=== PATIENT | female | born 1955 | race African-American/Black ===

== ENCOUNTER 2016-08-05 11:30 | Day surgery (SDC) | payer OTHER ==
[2016-08-04 11:15] VITALS: BMI 32.1
--- NOTE | 2016-08-05 09:54 | HP ---
[facility] - Chief Complaint Chief Complaint: right shoulder pain - Past Medical History Allergies/Adverse Reactions: Allergies Allergy/AdvReac Type Severity Reaction Status Date / Time No Known Allergies Allergy Verified 08/04/16 11:15 - Current Medications Current Medications: Home Medications Medication Instructions Recorded Ibuprofen [Motrin -] 400 mg PO PRN 08/04/16 Lisinopril/Hydrochlorothiazide 1 each PO DAILY 08/04/16 [Lisinopril-Hctz 20-25 mg Tab] Hydrocodone/Acetaminophen 1 each PO Q6H #40 tablet MDD 4 08/05/16 [Hydrocodon-Acetaminoph 7.5-325] [facility]ellite Physical Exam - Physical Examination General Appearance: Well Nourished, Well Developed, Alert & Oriented x3 ENT: Clear Lung: Normal air movement Heart: Regular rate & rhythm Extremities: Other (right shoulder- + ttp, decr rom, + empty can, + neer, + spence, nvi MRI + rct) Neurological: Intact, Alert, Oriented Satellite Impression/Plan - Impression/Plan Impression: right shoulder rct Operative Procedure: right shoulder arthroscopy SAD with possible RCR Date to be Performed: 08/05/16
[2016-08-05 11:34] LABS: URINE APPEARANCE CLEAR; URINE BILIRUBIN NEGATIVE (NEGATIVE); URINE COLOR YELLOW; URINE GLUCOSE (UA) NEGATIVE (NEGATIVE); URINE KETONE NEGATIVE (NEGATIVE); URINE NITRITE NEGATIVE (NEGATIVE); URINE PROTEIN NEGATIVE (NEGATIVE); URINE UROBILINOGEN NEGATIVE E.U./dl (0.2-1.0)
[2016-08-05 11:35] LABS: URINE BLOOD 2+ (NEGATIVE); URINE LEUK ESTERASE TRACE (NEGATIVE)
[2016-08-05 11:41] LABS: URINE HYALINE CAST 6 /lpf; URINE MUCUS FEW; URINE RBC 4 /hpf (0-3)
[2016-08-05] MEDS ORDERED: ROPIVACAINE HCL 0.5% 30ML VIAL ONE (13:14)
[2016-08-05] MEDS ORDERED: MIDAZOLAM HCL 2 MG/2 ML SINGLE DOSE VIAL ONE ×2 (13:15)
[2016-08-05] MEDS ORDERED: PROPOFOL 20 ML ONE (13:50)
[2016-08-05] MEDS ORDERED: ROCURONIUM BROMIDE 50 MG/5 ML VIAL ONE (13:50)
[2016-08-05] MEDS ORDERED: LIDOCAINE HCL/PF 2% SDV 5ML VIAL ONE (13:54)
[2016-08-05] MEDS ORDERED: ceFAZolin SODIUM 1 GM VIAL IVPB ONE (13:57)
[2016-08-05] MEDS ORDERED: ceFAZolin SODIUM 1 GM VIAL ONE (14:04)
[2016-08-05] MEDS ORDERED: BACITRACIN 30 GM TUBE TOPICAL OINTMENT ONE (15:05)
[2016-08-05] MEDS ORDERED: NEOSTIGMINE METHYLSULFATE 0.5 MG/ML - 10 ML MDV ONE (15:05)
[2016-08-05] MEDS ORDERED: GLYCOPYRROLATE 0.2 MG/1 ML VIAL ONE (15:05)
--- NOTE | 2016-08-05 15:09 | OP ---
Operative Note - Note: Operative Date: 08/05/16 Pre-Operative Diagnosis: right shoulder impingement syndrome, RTC tear Operation: right shoulder arthroscopy, decompression, distal clavicle excision, Mini Open RTC repair Implants: 2 x Arthrex Swivel [place] anchors, fiber wire Surgeon: Jose Fofana Workers Compensation Claims Analyst: Jan Jones Anesthesiologist/POULTRY OFFAL WORKER: Artem Patton Anesthesia: General Specimens Removed: shavings Estimated Blood Loss (mls): 50 Blood Volume Replaced (mls): 0 Fluid Volume Replaced (mls): 1,000 Operative Report Dictated: Yes
[2016-08-05] MEDS ORDERED: oxyCODONE HCL 5 MG TABLET PO PRN (15:23)
[2016-08-05] MEDS ORDERED: PROMETHAZINE HCL 25 MG/1 ML VIAL IVPUSH PRN (15:23)
[2016-08-05] MEDS ORDERED: HYDROmorphone HCL CARPU-JECT 1 MG/1 ML DISP.SYRIN IVPUSH PRN (15:23)
[2016-08-05] MEDS ORDERED: ONDANSETRON 4 MG/2 ML VIAL IVPUSH PRN (15:23)
[2016-08-05] MEDS ORDERED: HYDROmorphone HCL CARPU-JECT 2 MG/1 ML DISP.SYRIN ONE (15:28)
[2016-08-05] MEDS ORDERED: ACETAMINOPHEN INJECTION 100 ML IVPB ONE (15:29)
[2016-08-05] MEDS ORDERED: LACTATED RINGERS SOLUTION 1,000 ML IV SCH (15:30)
[2016-08-05] MEDS ORDERED: LORAZEPAM CARPU-JECT 2 MG/ML DISP.SYRIN IVPUSH ONE (15:31)
[2016-08-05] MEDS ORDERED: ACETAMINOPHEN 1000 MG/100 ML VIAL (NON FORMULARY) IVPB ONE (15:40)
[2016-08-05 17:35] VITALS: TEMP 98.2
[2016-08-05] MEDS ORDERED: oxyCODONE HCL 5 MG TABLET ONE (17:49)
[2016-08-05 19:15] VITALS: BP 139/69; PULSE 88
--- NOTE | 2016-08-06 12:04 | OP ---
DATE OF OPERATION: 08/05/2016 PREOPERATIVE DIAGNOSIS: Right shoulder impingement syndrome with rotator cuff tear. POSTOPERATIVE DIAGNOSIS: Right shoulder impingement syndrome with rotator cuff tear. PROCEDURE: Right shoulder arthroscopy, subacromial decompression, distal clavicle excision, and mini open rotator cuff repair. SURGEON: Jose Fofana MD ANIMAL HUSBANDRY TEACHER: DUNCAN Matos ANESTHESIA: Right interscalene block, LMA anesthesia. ANESTHESIOLOGIST: Albaro Patton MD DRAINS: None. BLOOD LOSS: None. COMPLICATIONS: None. FLUID REPLACEMENT: 700 mL SPECIMENS: Arthroscopic shavings. INDICATION: This patient is a 61-year-old female with a preoperative diagnosis of right shoulder subacromial impingement and rotator cuff tear. After understanding the potential risks, complications, alternatives, benefits of surgery versus nonsurgical treatment, the patient elected to undergo this procedure. DESCRIPTION OF PROCEDURE: The patient was brought to the operating room, peripheral IV placed, IV sedation given. LMA anesthesia was induced. She was given 2 g of IV Ancef. She was placed into the beach chair position with ample padding throughout. The right upper extremity was prepped and draped in sterile fashion, the bony landmarks marked out with a marking pen. A posterior portal was established and diagnostic glenohumeral arthroscopy was performed. The glenohumeral looked good. The labrum looked good. Biceps tendon looked good. The patient had a full complete rupture of the rotator cuff including the entire supraspinatus. The area was copiously irrigated and washed out. The arthroscope was then introduced into the subacromial space. Patient had some subacromial bursitis. Lateral portal was established under direct visualization using a spinal needle. Soft tissue bursectomy was performed after this extensive debridement. This exposed a spur on the undersurface of the distal clavicle, undersurface of the acromion. The patient did have a mobile os acromiale. A shaver was used to remove the soft tissue from the undersurface of the acromion and clavicle, then using the 5.5-mm oval bur, I took off the bony spur on the undersurfaces of both the clavicle and acromion. After the subacromial decompression and bursectomy, I was able to better visualize the top surface of the rotator cuff. The patient had a large crescent-shaped retracted full-thickness tear of the entire supraspinatus and a portion of the infraspinatus. I then cauterized at its landing bed. There were large bony ridges. These was taken down with the oval bur and the shaver under direct visualization. Five FiberWires were placed with the Medioio passer through the rotator cuff. I was then able to mobilize it quite easily. Next, we converted to a mini open approach. The lateral portal was extended with a No. 15 scalpel blade. Subcutaneous hemostasis was achieved with a Bovie cautery, dissection done down through the fat. It was quite deep. She had a significant adipose layer. The Gelpi and Aubrie retractors were placed into the wound for better visualization. Additional soft tissue bursectomy was performed. I was then able to see the rotator cuff and the lateral edge of the acromion. I was able to feel the undersurface of the acromion and fine tuned it with a rasp. Next, I mobilized the rotator cuff as much as possible with a periosteal elevator. I then passed the posterior 2 FiberWires, 4 tails, through SwiveLock anchor and put that in posteriorly. It came down quite nicely. I then put the anterior 3 sutures, 6 tails, through a second more anterior SwiveLock anchor. It all came down extremely well, covered the entire humeral head. The rotator cuff came down quite nicely. It moved as a unit with the humerus, and there were no points of impingement. Overall, I was very happy with the repair. The area was copiously irrigated and washed out. Closure was done with 0 Vicryl in the deep deltoid fascial layer as well as the deep adipose layer, 2-0 Vicryl in the deep dermal layer, and final skin reapproximation done with a running subcuticular 3-0 Biosyn. It was then washed and dried. The posterior portal was closed with nylon sutures. Skin glue was applied. Xeroform to the posterior portal and 2 Aquacel dressings were utilized, a 4-inch and a 6-inch. The area was otherwise washed out, cleaned up. She was extubated. Shoulder immobilizer was placed. She was taken out of the beach chair position and brought to the ambulatory recovery room in stable condition. Total operative time was about 50 minutes. There were no complications during the case. The patient tolerated the procedure well and was brought to the ambulatory recovery room in stable condition. Loco [id number]
--- NOTE | 2016-08-07 13:59 | PATH ---
Surgical Pathology Report Patient Name: NUPUR ROMEO [facility]. Rec. #: [id number] /Age/Gender: 1955 (Age: 61) / F Account: [id number] Location: [facility] SURGICAL Taken: 08/05/2016 Received: 08/06/2016 Reported: 08/07/2016 Physicians: Jose Fofana M.D. Specimen(s) Received SHAVINGS RIGHT SHOULDER Clinical History Right shoulder impingement syndrome Final Diagnosis RIGHT SHOULDER, ARTHROSCOPIC SHAVING: PORTIONS OF SYNOVIUM, CARTILAGE, SKELETAL MUSCLE AND BONE CONSISTENT WITH ARTHROSCOPIC SHAVINGS. Electronically Signed Bj Pinedo M.D. Gross Description Received in formalin, labeled "right shoulder shavings," is a 4.5 x 4.0 x 0.6 cm. aggregate of plasencia-yellow soft tissue fragments. A textile machinery sales representative portion is submitted in one cassette. /08/06/201608/06/2016
== END 2016-08-05 19:37 | disposition home or self-care (01) ==
LOC: JASU-SURG 11:30
PROVIDERS: ATTEND Orthopaedic Surgery
PROC: 0LQ10ZZ Repair Right Shoulder Tendon, Open Approach (ICD-10-PCS; 2016-08-05)
PROC: 0RBJ4ZZ Excision of Right Shoulder Joint, Percutaneous Endoscopic Approach (ICD-10-PCS; principal; 2016-08-05 13:00)
PROC: 0PB94ZZ Excision of Right Clavicle, Percutaneous Endoscopic Approach (ICD-10-PCS; 2016-08-05 13:00)
DX: M75.41 Impingement syndrome of right shoulder (principal); M75.101 Unspecified rotator cuff tear or rupture of right shoulder, not specified as traumatic
CPT/HCPCS: 81003; 81015; 88304-TC; 94760

== ENCOUNTER 2019-02-28 15:52 | Emergency (ER) | payer OTHER | END 2019-02-28 20:50 | disposition home or self-care (01) | LOC: JER 15:52 ==